=== PATIENT | male | born 1960 | race Caucasian/White ===

== ENCOUNTER 2017-11-04 13:40 | Emergency (ER) | payer OTHER ==
[2017-11-04 13:52] VITALS: TEMP 97.6
--- NOTE | 2017-11-04 14:38 | ED ---
Back Pain HPI - General Chief Complaint: Back Pain/Injury Stated Complaint: trip & fall/back & arm pain Time Seen by Provider: 11/04/17 14:19 Source: patient, RN notes reviewed Limitations: physical limitation - History of Present Illness Initial Comments: This is a 56-year-old male who presents to the emergency department with chief complaint of fall injury. Patient states that approximately 2 hours ago he tripped over the dog cable and fell forward landing on his right side. He states that on his way down he hit a rock and a livingston's hook. He states that initially he was unable to get up off the ground and needed help from his . He states that he has pain in his right upper arm and his right low back. He states the pain is made worse to his low back with movement, deep breathing or when he lifts his left leg. He denies any saddle paresthesias or loss of bladder or bowel function. He denies any numbness or tingling or radiation of pain down the legs. He states that he initially applied ice to his right low back. Denies any other injuries or trauma. Denies head or neck pain. Denies recent fevers or chills, chest pain or shortness of breath, abdominal pain, nausea or vomiting. - Related Data Allergies Allergy/AdvReac Type Severity Reaction Status Date / Time naproxen [From Naprosyn] Allergy sweating, Verified 11/04/17 13:52 nauseated Review of Systems ROS Statement: Those systems with pertinent positive or pertinent negative responses have been documented in the HPI. ROS Other: All systems not noted in ROS Statement are negative. Past Medical History Past Medical History: Diabetes Mellitus, Hypertension History of Any Multi-Drug Resistant Organisms: None Reported Past Surgical History: Orthopedic Surgery Past Psychological History: No Psychological Hx Reported Smoking Status: Current every day smoker Past Alcohol Use History: Rare Past Drug Use History: None Reported General Exam - General Exam Comments Initial Comments: General: Awake and alert, well-developed; in no apparent distress. HEENT: Head atraumatic, normocephalic. Pupils are equal, round and reactive to light. Extraocular movements intact. Oropharynx moist without erythema or exudate. Neck: Supple. Normal ROM. Cardiovascular: Regular rate and rhythm. No murmurs, rubs or gallops. Chest symmetrical. Radial and pedal pulses are 2+ equal and palpable bilaterally. Respiratory: Lungs clear to auscultation bilaterally. No wheezes, rales or rhonchi. Normal respiratory effort with no use of accessory muscles. Musculoskeletal: Normal range of motion bilateral upper and lower extremities. There is tenderness on palpation of the proximal right humerus. No deformities. Tenderness on palpation of right lumbar paraspinal muscles and SI joint. No bony point vertebral tenderness. Sensation is intact. Skin: [place], warm and dry without rashes or lesions. Neurological: Alert and oriented x3. CN II-XII grossly intact. Speech is fluent and answers are appropriate. No focal neuro deficits. Psychiatric: Normal mood and affect. No overt signs of depression or anxiety noted. Limitations: physical limitation Course Vital Signs 11/04/17 13:48 Temperature 97.6 F Pulse Rate 74 Respiratory 18 Rate Blood Pressure 143/75 O2 Sat by Pulse 97 Oximetry Medical Decision Making - Medical Decision Making This is a 56-year-old male who presents to the emergency department with chief complaint of fall injury. Patient complained of right upper arm pain as well as right low back pain. Denies saddle paresthesias or loss of bladder or bowel function. X-ray of the right arm revealed soft tissue swelling, no fractures or dislocations. X-ray of lumbar spine revealed degenerative changes, facet arthropathy, no acute fractures or dislocations. Patient was made aware of findings. He was given a shot of Toradol in the emergency department. Recommended follow-up with his primary care provider in the next 1-2 days. Recommended rest, ice, stretching exercises and ibuprofen as needed. Patient's vital signs are stable and he is in no acute distress. He will be discharged home at this time. All questions answered. - Radiology Data Radiology results: report reviewed, image reviewed X-ray right humerus impression: No fracture or dislocation. There is soft tissue swelling. X-ray lumbar spine findings: Lumbar vertebral body show preserved height and alignment, bone mineralization. There is multilevel spondylosis with loss of disc height at intervertebral levels. Sclerosis present in the posterior elements of the lower lumbar spine. Vacuum phenomenon present in multiple intervertebral levels. There is chronic vascular calcifications present in the area of the iliac distribution. Impression: Degenerative disc disease, facet arthropathy. Disposition Clinical Impression: Contusion of lower back, Contusion of right arm Disposition: HOME SELF-CARE Condition: Good Instructions: Acute Low Back Pain (ED), Contusion in Adults (ED), Arm Pain (ED) Additional Instructions: Please rest, ice and take ibuprofen as needed for pain. Please follow up with primary care provider within 1-2 days. Return to emergency department if symptoms should worsen or any concerns arise. Is patient prescribed a controlled substance at d/c from ED?: No Referrals: Garrick Arana MD [Primary Care Provider] - 1-2 days Time of Disposition: 15:26
--- NOTE | 2017-11-04 15:06 | XR ---
Right humerus HISTORY: Trauma and pain 2 views of the right humerus on 3 images Bone mineralization, joint spaces and alignment are maintained. Arthropathy noted at the acromioclavi cular joint, distal acromial spur suspected. There is arthropathy in the right elbow with possible lo ose body. There is soft tissue swelling. IMPRESSION: No fracture or dislocation.
--- NOTE | 2017-11-04 15:10 | XR ---
Lumbar spine HISTORY: Pain, trauma 3 views of the lumbar spine Lumbar vertebral bodies show preserved height, alignment, and bone mineralization. There is multileve l spondylosis with loss of disc height at intervertebral levels. Sclerosis present in the posterior e lements of the lower lumbar spine. Vacuum phenomenon present at multiple intervertebral levels. There is chronic vascular calcifications are present in the area of iliac distribution. IMPRESSION: Degenerative disc disease, facet arthropathy, additional findings above.
[2017-11-04] MEDS ORDERED: KETOROLAC 30 MG/ML 1 ML VIAL IM STA (15:23)
[2017-11-04 15:31] VITALS: BP 168/95; PULSE 69; RESP 16
== END 2017-11-04 15:35 | disposition home or self-care (01) ==
LOC: EC 13:40
DX: S30.0XXA Contusion of lower back and pelvis, initial encounter (principal); S40.021A Contusion of right upper arm, initial encounter; F17.200 Nicotine dependence, unspecified, uncomplicated; Z88.6 Allergy status to analgesic agent; W18.09XA Striking against other object with subsequent fall, initial encounter
CPT/HCPCS: 72100; 73060; 99283; 96372; J1885